=== PATIENT | female | born 1950 | race African-American/Black ===

== ENCOUNTER 2020-03-02 06:29 | Emergency (ER) | payer OTHER ==
[~2020-03-02] VITALS: Ht 154.9 cm; Wt 78.0 kg
[2020-03-02 06:34] VITALS: Ht 154.9 cm; Wt 78.0 kg
[2020-03-02 07:15] VITALS: BP 152/73
== END 2020-03-02 07:15 | disposition home or self-care (01) ==
LOC: ED 06:29
DX: N64.4 Mastodynia (principal); R07.89 Other chest pain; I10 Essential (primary) hypertension; J45.909 Unspecified asthma, uncomplicated; Z90.710 Acquired absence of both cervix and uterus; Z98.890 Other specified postprocedural states; V47.5XXA Car driver injured in collision with fixed or stationary object in traffic accident, initial encounter; Y93.I9 Activity, other involving external motion; Y92.488 Other paved roadways as the place of occurrence of the external cause; Y99.8 Other external cause status
CPT/HCPCS: J1885